=== PATIENT | female | born 1995 | race Caucasian/White ===

== ENCOUNTER → 2024-06-16 06:57 | Outpatient (CLI) | payer OTHER, SELFPAY ==
--- NOTE | 2024-06-16 07:00 | DI.US.S_ITS ---
PROCEDURE: US PELVIC COMPLETE INDICATIONS: RETAINED UNILATERAL IUD AFTER REMOVAL 2022. TECHNIQUE: Real-time scanning was performed of the pelvic organs, with image documentation. Additional endovaginal scanning was necessary due to incomplete visualization of the adnexal and endometrial structures by transabdominal scanning. COMPARISON: None. FINDINGS: Uterus: Uterus is anteverted and normal in size at 7.4 x 5.6 x 3.6 cm. The myometrium is homogeneous. The endometrium measures 14.2 mm combined thickness. No linear radiodensities seen in the endometrial canal. No suspicious myometrial masses or foreign bodies. Several small nabothian cysts present in the cervix. Ovaries: The right ovary measures 4.4 x 3.1 x 2.8 cm, with a calculated ovarian volume of 19.4 cc. The left ovary measures 4.2 x 1.5 x 1.8 cm, with a calculated ovarian volume of 5.9 cc. A thick-walled involuted cyst measuring 2.1 cm in right ovary is likely a corpus luteum. Less than 12 follicles can be seen in each ovary. No adnexal masses are seen. Other: No pathologic free abdominal or pelvic fluid. IMPRESSION: Retained IUD piece is not identified on the current exam. Plain radiograph of the pelvis to assess for extra uterine location foreign body could be considered if needed. The uterus is otherwise. Normal ovaries. We strive to produce accurate, complete, and clear reports of imaging services. To assist us in improving patient care, this report was composed using standard report templates and voice recognition software. Therefore, it may contain abnormal punctuation, insertions and/or omissions. Occasional wrong-word or sound-alike substitutions may occur. Though we review the report and make efforts to correct it, we do recommend that the report be read carefully in proper context to recognize any text inaccuracies. Dictated by: Leana Reo M.D. on 06/16/2024 at 17:49 Approved by: Leana Roe M.D. on 06/16/2024 at 17:52
== END ==
DX: T83 Complications of genitourinary prosthetic devices, implants and grafts (principal)
CPT/HCPCS: 76830; 76856